=== PATIENT | male | born 1940 | race Caucasian/White ===

== ENCOUNTER 2019-01-31 01:55 | Emergency (ER) | payer MEDICARE, MEDICAID ==
[~2019-01-31] VITALS: Ht 170.2 cm; Wt 93.2 kg
[2019-01-31 02:00] VITALS: BP 131/74; Ht 170.2 cm; Wt 93.2 kg
[2019-01-31] MEDS ORDERED: TOPROL XL50 MG PO (02:03)
[2019-01-31] MEDS ORDERED: CHLORTHALIDONE25 MG PO (02:03)
[2019-01-31] MEDS ORDERED: FLOMAX0.4 MG PO (02:24)
== END 2019-01-31 02:32 | disposition home or self-care (01) ==
LOC: D.ER 01:55
DX: R33.8 Other retention of urine (principal)